=== PATIENT | female | born 1990 | race African-American/Black ===

== ENCOUNTER 2019-07-31 08:00 | Emergency (ER) | payer BC, MEDICAID ==
[~2019-07-31] VITALS: Ht 165.1 cm; Wt 113.0 kg
[2019-07-31] MEDS ORDERED: DEXAMETHASONE 10 MG/ML VIAL IM ONE (10:15)
[2019-07-31] MEDS ORDERED: KETOROLAC 60MG/2ML VIAL IM ONE (10:15)
[2019-07-31 11:50] VITALS: BP 132/70
== END 2019-07-31 11:50 | disposition home or self-care (01) ==
LOC: ER 08:00
DX: J02.9 Acute pharyngitis, unspecified (principal)
CPT/HCPCS: 71045; 81025; 87070; 87430; 96372; 99283; J1100; J1885; Z7610